=== PATIENT | male | born 1955 | race Hispanic/Latino ===

== ENCOUNTER → 2017-07-31 | Day surgery (SDC) | payer OTHER ==
[~2017-07-31] MED LIST: CYCLOBENZAPRINE5 MG PO; MIDAZOLAM HCL 2 MG/2 ML VIAL ONE; NAPROXEN375 MG PO; PROPOFOL IV EMULSION 10 MG/ML 20 ML VIAL ONE; VICODIN ES TAB1 EACH PO; Z.0.CRESTOR10 MG PO
== END | disposition home or self-care (01) ==
LOC: OR 09:39
PROVIDERS: ATTEND Internal Medicine Gastroenterology
DX: Z12.11 Encounter for screening for malignant neoplasm of colon (principal); K57.30 Diverticulosis of large intestine without perforation or abscess without bleeding; K64.8 Other hemorrhoids; E66.3 Overweight; F17.210 Nicotine dependence, cigarettes, uncomplicated; Z68.25 Body mass index [BMI] 25.0-25.9, adult; Z80.0 Family history of malignant neoplasm of digestive organs
CPT/HCPCS: 45378; 93005; J2250; G0105

== ENCOUNTER → 2021-12-22 | Outpatient (CLI) | payer MEDICARE ==
[~2021-12-22] MED LIST changes: -MIDAZOLAM HCL 2 MG/2 ML VIAL ONE; -PROPOFOL IV EMULSION 10 MG/ML 20 ML VIAL ONE
== END ==
LOC: US 08:30
PROVIDERS: ATTEND Otolaryngology
DX: E04.1 Nontoxic single thyroid nodule (principal)
CPT/HCPCS: 76536

== ENCOUNTER → 2022-01-01 | Outpatient (CLI) | payer MEDICARE | LOC: US 07:47 | PROVIDERS: ATTEND Otolaryngology | DX: E04.1 Nontoxic single thyroid nodule (principal) | CPT/HCPCS: 10005; 88172; 88173; 88300; 88305 ==

== ENCOUNTER 2022-01-22 05:24 | Observation (INO) | payer MEDICARE ==
[2022-01-19 07:39] LABS: BASOPHILS # (AUTO) 0.1 (0.0-0.1); BASOPHILS % 0.8 % (0.0-1.0); EOSINOPHILS # (AUTO) 0.1 (0.0-0.4); EOSINOPHILS % 1.4 % (0.0-6.0); HEMATOCRIT 47.6 % (38.2-49.6); HEMOGLOBIN 15.1 g/dL (14.0-18.0); LYMPHOCYTES # (AUTO) 1.9 (1.0-3.2); LYMPHOCYTES % 31.9 % (18.0-39.1); MEAN CORPUSCULAR HEMOGLOBIN 31.2 pg (28-32); MEAN CORPUSCULAR HGB CONC 31.7 g/dL (31-35); MEAN CORPUSCULAR VOLUME 98.3 fL (81-99); MONOCYTES # (AUTO) 0.5 (0.2-0.8); MONOCYTES % 8.5 % (4.4-11.3); NEUTROPHILS # (AUTO) 3.4 (2.1-6.9); NEUTROPHILS % 57.2 % (38.7-80.0); PLATELET COUNT 220 x10e3/uL (140-360); RED BLOOD COUNT 4.84 x10e6/uL (4.3-5.7); RED CELL DISTRIBUTION WIDTH 13.2 % (11.7-14.4)
[~2022-01-22] VITALS: Ht 170.2 cm; Wt 76.2 kg
[~2022-01-22 05:24] MED LIST changes: +ONE DAILY MEN'1 EAC1 PO; +VITAMIN D325 MCG PO; +[UNRECOGNIZED DRUG - OTHER] PO
[2022-01-22] MEDS ORDERED: BUPIVACAINE 0.5%/EPI 30 ML SDV INJ ONE (06:55)
[2022-01-22 10:37] LABS: ALBUMIN 3.6 g/dL (3.5-5.0); CALCIUM 8.6 mg/dL (8.4-10.2)
[2022-01-22] MEDS ORDERED: FENTANYL CITRATE/PF 100MCG/2 ML INJ ONE (10:39)
[2022-01-22] MEDS ORDERED: HYDROCODONE/APAP 5MG-325MG TAB PO PRN ×2 (11:00)
[2022-01-22] MEDS ORDERED: ONDANSETRON HCL INJ 2MG/ML 2ML 2 MG/ML VIAL IV PRN (11:00)
[2022-01-22] MEDS: D5.45%NS/KCL 20MEQ 1,000 ML IV SCH ×3 (11:30→22:35)
[2022-01-22 12:48] VITALS: BP 148/87
[2022-01-22 12:49] VITALS: BP 148/87
[2022-01-22 12:52] VITALS: BP 148/87
[2022-01-22] MEDS ORDERED: SODIUM CHLORIDE 0.9% 250ML 0 ML ONE (13:44)
[2022-01-22] MEDS ORDERED: SEVOFLURANE INHAL SOLN 250 ML PEN BTL ONE (13:53)
[2022-01-22] MEDS ORDERED: GLYCOPYRROLATE INJ 0.2 MG/ML VIAL ONE (13:53)
[2022-01-22] MEDS ORDERED: SUCCINYLCHOLINE CHLORIDE 20 MG/ML 10ML VIAL ONE (13:53)
[2022-01-22] MEDS ORDERED: ONDANSETRON HCL INJ 2MG/ML 2ML 2 MG/ML VIAL ONE (13:53)
[2022-01-22] MEDS ORDERED: PROPOFOL IV EMULSION 10 MG/ML 20 ML VIAL ONE (13:53)
[2022-01-22] MEDS ORDERED: LIDOCAINE HCL 2% LOCAL INJ 5 ML SDV VIAL INJ ONE (13:53)
[2022-01-22 17:51] VITALS: BP 150/75
[2022-01-22 18:27] LABS: ALBUMIN 3.5 g/dL (3.5-5.0); CALCIUM 8.5 mg/dL (8.4-10.2)
[2022-01-22 20:00] VITALS: BP 115/79
[2022-01-22 21:00] VITALS: BP 115/79
[2022-01-22] MEDS ORDERED: CRESTOR 10MG PO SCH (21:00)
[2022-01-23 00:02] VITALS: BP 134/73
[2022-01-23 04:00] VITALS: BP 107/65
[2022-01-23 06:51] LABS: ALBUMIN 3.3 g/dL (3.5-5.0); CALCIUM 8.2 mg/dL (8.4-10.2)
[2022-01-23 09:00] VITALS: BP 107/67
[2022-01-23 10:06] VITALS: BP 107/67
[2022-01-23] MEDS ORDERED: SYNTHROID100 MCG PO (12:26)
== END 2022-01-23 13:04 | disposition home or self-care (01) ==
LOC: OR 05:24 → PACU V 10:06 → MED/SURG2 11:19
PROVIDERS: ADMIT Otolaryngology; ATTEND Otolaryngology
DX: C73 Malignant neoplasm of thyroid gland (principal); C77.0 Secondary and unspecified malignant neoplasm of lymph nodes of head, face and neck; F17.210 Nicotine dependence, cigarettes, uncomplicated; E78.00 Pure hypercholesterolemia, unspecified; Z01.810 Encounter for preprocedural cardiovascular examination; Z01.812 Encounter for preprocedural laboratory examination; Z01.818 Encounter for other preprocedural examination; Z20.822 Contact with and (suspected) exposure to COVID-19
CPT/HCPCS: 0223U; 36415 ×3; 60252; 71046; 82040 ×2; 82310 ×2; 85025; 88305; 88307; 88331; 93005; C1713 ×2; G0378 ×2; J0330; J0690 ×2; J2001; J2405; J2704; J3010; 88304; J7050